=== PATIENT | female | born 1990 | race African-American/Black ===

== ENCOUNTER 2022-01-20 07:30 | Outpatient (CLI) | payer MEDICAID, SELFPAY ==
[2022-01-20 13:55] LABS: Chloride* 105 mmol/L (96-114); Potassium* 3.9 mmol/L (3.6-5.1)
[2022-01-20 13:57] LABS: Creatinine* 0.6 mg/dL (0.5-1.5); Estimated Glomerular Filt Rate 121 ml/min
[2022-01-20 13:58] LABS: Blood Urea Nitrogen* 14 mg/dL (5-24); Calcium* 9.1 mg/dL (8.4-10.6); Carbon Dioxide* 23 mmol/L (20-32); Glucose* 77 mg/dL (60-115)
[2022-01-20 14:06] LABS: Sodium* 138 mmol/L (135-149)
== END 2022-01-20 07:31 | disposition home or self-care (01) ==
LOC: FRMREF 07:32
PROVIDERS: PCP Physician Assistant Medical; Visit Provider Physician Assistant Medical
DX: M54.50 Low back pain, unspecified (principal); J06.9 Acute upper respiratory infection, unspecified
CPT/HCPCS: 80048